=== PATIENT | female | born 1990 | race Two or more races ===

== ENCOUNTER 2017-12-19 04:36 | Inpatient (IN) | payer OTHER ==
[2017-12-19 05:32] LABS: APPEARANCE,URINE CLEAR; BILIRUBIN,URINE NEGATIVE (NEGATIVE); COLOR,URINE YELLOW; GLUCOSE, URINE NEGATIVE (NEGATIVE); KETONES,URINE NEGATIVE (NEGATIVE); LEUKOCYTE ESTERASE,URINE NEGATIVE (NEGATIVE); NITRITE,URINE NEGATIVE (NEGATIVE); PROTEIN,URINE NEGATIVE (NEGATIVE); URINE SPECIFIC GRAVITY 1.018
[2017-12-19] MEDS ORDERED: RINGERS SOLUTION,LACTATED 1,000 ML IV PRN (05:33)
[2017-12-19 05:46] LABS: URINE AMPHETAMINES SCREEN NEGATIVE; URINE BARBITURATES SCREEN NEGATIVE; URINE BENZODIAZEPINES SCREEN NEGATIVE; URINE COCAINE SCREEN NEGATIVE; URINE MARIJUANA (THC) SCREEN NEGATIVE; URINE METHADONE SCREEN NEGATIVE; URINE PHENCYCLIDINE SCREEN NEGATIVE
[2017-12-19] MEDS ORDERED: OXYTOCIN/NORMAL SALINE 20 UNIT/1,000 ML RTUINJ ONE (06:09)
[2017-12-19] MEDS ORDERED: MISOPROSTOL 0.2 MG TABLET ONE (06:09)
[2017-12-19] MEDS ORDERED: LIDOCAINE 1% INJ-PF (10 MG/ML) 30 ML SDV ONE (06:09)
--- NOTE | 2017-12-19 06:43 | Admission Physical ---
Datetime Report Generated by CPN: 12/19/2017 06:42 CURRENT ADMISSION Chief Complaint: Uterine Contractions Indication for Induction: Not Applicable Admit Impression : Term, Intrauterine Admit Plan: Initiate Labor Protocol ALLERGIES Medication Allergies: No Latex: No Latex Allergies OBSTETRICAL HISTORY EDC: 12/09/2017 00:00 : 3 Para: 1 Term: 1 : 0 SAB: 1 IAB: 0 Ectopic: 0 Livin Cesareans: 0 VBACs: 0 Multiple Births: 0 Gestational Diabetes: No Rh Sensitization: No Incompetent Cervix: No CHRISTY: No Infertility: No ART Treatment: No Uterine Anomaly: No IUGR: No Hx Previous C/S: No Macrosomia: No Hx Loss/Stillborn: No PIH: No Hx : No Placenta Previa/Abruption: No Depression/PP Depression: No PTL/PROM: No Post Hemorrhage: No Current Procedures: Ultrasound Obstetrical History Comments: G1- in 2014 G2- SAB @ 8weeks G3- current SEE RECORDS Alcohol: No Marijuana : No Cocaine: No Other Illicit Drugs: No Cigarettes: Never Smoker. 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 Surgery: No Heart Disease: No Hosp/Surgery: No Autoimmune Disorder: No Anesthetic Complications: No Kidney Disease: No Abnormal Pap Smear: No Neuro/Epilepsy: No Psychiatric Disorders: No Other Medical Diseases: No Hepatitis/Liver Disease: No Significant Family History: No Varicosities/Phlebitis: No Trauma/Violence : No Thyroid Dysfunction: No INFECTIOUS HISTORY Gonorrhea: No Genital Herpes: Yes Chlamydia: No Tuberculosis: No Syphilis: No Hepatitis: No HIV/AIDS Exposure: No Rash or Viral Illness: No HPV: No PHYSICAL EXAM General: Normal HEENT: Normal Neurologic: Normal Thyroid: Normal Heart: Normal Lungs: Normal Breast: Deferred Back: Normal Abdomen: Normal Genitourinary Exam: Normal Extremities: Normal DTRs: Normal Pelvic Type: Adequate FETUS A EGA: 41.3 Monitoring: External US Decelerations: None Admit Comment: presented in labor PLANS FOR LABOR AND DELIVERY Labor and Delivery: None Pain Management: Natural Feeding Preference: Breast Benefit of Breast Feed Discussed: Yes Circumcision: N/A INFORMED CONSENT Signature: with User ID: [email or web address]
[2017-12-19 06:51] LABS: ABSOLUTE EOSINOPHILS # (AUTO) 0.1 10^3/uL (0.0-0.6); ABSOLUTE LYMPHOCYTES (AUTO) 1.9 10^3/uL (0.5-4.7); ABSOLUTE MONOCYTES (AUTO) 0.6 10^3/uL (0.1-1.4); ABSOLUTE NEUT (AUTO) 6.2 10^3/uL (1.7-8.2); BASOPHILS % (AUTO) 0.4 % (0-2); HEMATOCRIT 34.5 % (36.0-47.0); HEMOGLOBIN 11.8 g/dL (12.0-15.5); LYMPHOCYTES % (AUTO) 21.6 % (13-45); MEAN CORPUSCULAR HEMOGLOBIN 28.9 pg (27.0-33.4); MEAN CORPUSCULAR HGB CONC 34.2 g/dL (32.0-36.0); MEAN CORPUSCULAR VOLUME 84 fl (80-97); MONOCYTES % (AUTO) 6.9 % (3-13); PLATELET COUNT 179 10^3/uL (150-450); RED BLOOD COUNT 4.08 10^6/uL (3.72-5.28); RED CELL DISTRIBUTION WIDTH 13.1 % (11.5-14.0); SEGMENTED NEUTROPHILS % (AUTO) 70.1 % (42-78); TOTAL CELLS COUNTED % (AUTO) 100 %; WHITE BLOOD COUNT 8.8 10^3/uL (4.0-10.5)
--- NOTE | 2017-12-19 08:39 | L&D Progress Notes ---
PROGRESS NOTES Datetime Report Generated by CPN: 12/19/2017 08:39 PROGRESS NOTE Impression: Reassuring Heart Rate Plan: Continue Present Management Informed Consent Obtained: Vaginal Delivery Vital Signs : Reviewed; Within Normal Limits Comment: Standing on side of bed, brething with uc's, does not want epidural or pain medication, irreg uc's, getting stromger, does not want to be checked, Cat 1 strip, pelvis proven 8-7 FETUS A FHR - Baseline: 150 Monitoring: External US Variability: Moderate 6-25bpm Accelerations: 15X15 Decelerations: None SIGNATURE SIGNATURE: [id number] SIGNATURE: [id number] Assignment: Valentina Beatty MD Signature: with User ID: Jackie : with User ID: [email or web address]
--- NOTE | 2017-12-19 12:20 | L&D Progress Notes ---
PROGRESS NOTES Datetime Report Generated by CPN: 12/19/2017 12:20 PROGRESS NOTE Impression: Reassuring Heart Rate Plan: Continue Present Management; Anticipate Vaginal Delivery Vital Signs : Reviewed; Within Normal Limits Comment: Cat 1 strip, breathing with UC's, uc's q 2-4, pt does not want a vaginal exam, Dr. Rogerio on unit and aware of status MEMBRANES Membranes: Ruptured FETUS C SIGNATURE: [id number];[id number] Assignment: Valentina Beatty MD Signature: with User ID: Jackie : with User ID: Jackie
[2017-12-19] MEDS ORDERED: OXYTOCIN/NORMAL SALINE 20 UNIT/1,000 ML RTUINJ IV PRN ×2 (12:28→15:11)
[2017-12-19] MEDS ORDERED: DIPH/PERTUSS(ACELL)/TETANUS VAC/PF 0.5 ML SYR (>=10YO) IM PRN (15:11)
[2017-12-19] MEDS ORDERED: PROMETHAZINE HCL 25 MG SUPP.RECT PR PRN (15:11)
[2017-12-19] MEDS ORDERED: DIBUCAINE 1% OINTMENT 28 GM TP PRN (15:11)
[2017-12-19] MEDS ORDERED: MAGNESIUM HYDROXIDE SUSP 30 ML UDCUP PO PRN (15:11)
[2017-12-19] MEDS ORDERED: DIPHENHYDRAMINE HCL 25 MG CAPSULE PO PRN (15:11)
[2017-12-19] MEDS ORDERED: PROMETHAZINE HCL 25 MG TABLET PO PRN (15:11)
[2017-12-19] MEDS ORDERED: ACETAMINOPHEN WITH CODEINE #3 TABLET PO PRN ×2 (15:11)
[2017-12-19] MEDS ORDERED: GLYCERIN/WITCH HAZEL LEAF 1 EACH MED..PAD TP PRN (15:11)
[2017-12-19] MEDS ORDERED: MISOPROSTOL 0.2 MG TABLET PR PRN (15:11)
[2017-12-19] MEDS ORDERED: BENZOCAINE/MENTHOL AEROSOL SPRAY 56 ML TOP PRN (15:11)
[2017-12-19] MEDS ORDERED: PSEUDOEPHEDRINE HCL 30 MG TABLET PO PRN (15:11)
[2017-12-19] MEDS ORDERED: MEASLES,MUMPS&RUBELLA VACC/PF 0.5 ML VIAL SUBCUT PRN (15:11)
[2017-12-19] MEDS ORDERED: ACETAMINOPHEN 650 MG SUPP.RECT PR PRN (15:11)
[2017-12-19] MEDS ORDERED: PROMETHAZINE HCL INJ 25 MG/1 ML VIAL IV PRN (15:11)
[2017-12-19] MEDS ORDERED: NA PHOS,M-B/NA PHOS,DI-BA (ADULT) 133 ML ENEMA PR PRN (15:11)
--- NOTE | 2017-12-19 17:03 | Warning Signs in Babies ---
VOD Warning Signs Datetime Report Generated by [facility]: 12/19/2017 17:03 VOD#608 -Warning Signs in Babies: Needs to be viewed. (12/19/2017 04:42:Barbara Valentin RN)
[2017-12-19] MEDS ORDERED: IBUPROFEN 800 MG TABLET ONE (17:12)
[2017-12-19] MEDS: IBUPROFEN 800 MG TABLET PO SCH (17:13)
--- NOTE | 2017-12-19 18:15 | Delivery Summary ---
Del Sum A-C Datetime Report Generated by CPN: 12/19/2017 18:14 DELIVERY PERSONNEL DELIVERY PERSONNEL: [id number] Delivery Doctor:: Radha Garland CNM Labor and Delivery Nurse:: Barbara Wagner RNscrap hooker Nurse:: Nataly Sheehan RN Nursery Nurse:: Gosia Whitman RN Additional Personnel: : Alis Barragan RN MATERNAL INFORMATION Delivery Anesthesia: None Medications After Delivery: Pitocin Bolus-Please Comment; Pitocin Drip 20 Units/1000ml NSS; Cytotec 600mcg Per Rectum/Vagina Maternal Complications: None Provider Comments: Pt in hands and knees, baby rotated and started pushing immediately, Delivered from OA to SUZIE, after delivery of head, pt stopped pushing, reminded to continue pushing with delivery of , nc x 1, easily reduced, baby placed on mothers abdomen, suctioned and stimulated, nursery in to evaluate baby Spont delivery of grossly nl intact placenta, 3 VC, ML lac repaired with 2-0 chromic without difficulty using Xylocaine, baby and mom remains in recovery in stable condition, cytotec 600 mcg via rectum, Pitocin and FFFM LABOR SUMMARY EDC: 12/09/2017 00:00 No. Babies in Womb: 1 Attempted: No Labor Anesthesia: None LABOR INFORMATION Reason for Induction: Not Applicable Onset of Labor: 12/19/2017 05:28 Complete Dilatation: 12/19/2017 14:46 Oxytocin: Augmentation Group B Beta Strep: negative Steroids Given: None Reason Steroids Not Administered: Not Applicable MEMBRANES Membranes Rupture Method: Artificial Rupture of Membranes: 12/19/2017 14:35 Length of Rupture (hr): 0.22 Amniotic Fluid Color: Clear Amniotic Fluid Amount: Small Amniotic Fluid Odor: Normal STAGES OF LABOR Stage 1 hr: 9 Stage 1 min: 18 Stage 2 hr: 0 Stage 2 min: 2 Stage 3 hr: 0 Stage 3 min: 4 Total Time in Labor hr: 9 Total Time in Labor min: 24 VAGINAL DELIVERY Episiotomy: None Laceration #1: Perineal Laceration Extension #1: First Degree Laceration Repair: Yes Laceration Repair Note: 2-0 chromic using 5cc 1% Xylocaine Sponge Count Correct: N/A Sharps Count Correct: N/A BABY A INFORMATION Infant Delivery Date/Time: 12/19/2017 14:48 Method of Delivery: Vaginal Born in Route : No : N/A Forceps: N/A Vacuum Extraction: N/A Shoulder Dystocia : No PRESENTATION/POSITION BABY A Presentation: Cephalic Cephalic Presentation: Vertex Vertex Position: Left Occipital Anterior Breech Presentation: N/A PLACENTA INFORMATION BABY A Placenta Delivery Time : 12/19/2017 14:52 Placenta Method of Delivery: Spontaneous Placenta Status: Delivered SCORES BABY A Heart Rate 1 min: >100 bpm Resp Effort 1 min: Slow, Irregular Reflex Irritability 1 min: Cough or Sneeze or Pulls Away Muscle Tone 1 min: Some Flexion of Extremities Color 1 min: Blue/Pale Resuscitation Effort 1 min: Tactile Stimulation SCORE 1 MIN: 6 Heart Rate 5 min: >100 bpm Resp Effort 5 min: Slow, Irregular Reflex Irritability 5 min: Cough or Sneeze or Pulls Away Muscle Tone 5 min: Active Motion Color 5 min: Body [place], Extremities Blue Resuscitation Effort 5 min: Tactile Stimulation SCORE 5 MIN: 8 INFANT INFORMATION BABY A Gestational Age at Delivery: 41.3 Gestational Status: Late Term- 41- 41.6 Weeks Infant Outcome : Liveborn Infant Condition : Stable Sex: Female IDENTIFICATION BABY A Infant Verification Date/Time: 12/19/2017 15:44 ID Band Number: [id number] Mother's Name Verified: Yes Infant RN Verifying : Natasha Wagner, RN/ BAmanda Sheehan, RN WEIGHT/LENGTH BABY A Infant Birthweight (gm): 3920 Weight (lb): 8 Infant Weight (oz): 10 Length (in): 20.75 Infant Length (cm): 52.71 CORD INFORMATION BABY A No. Cord Vessels: 3 Nuchal Cord : Around Neck x1, Loose Cord Blood Taken: Yes-For Storage (Mom's Blood type +) Suction: Mouth; Nose ASSESSMENT BABY A Infant Complications: None Physical Findings at Delivery: Within Normal Limits Respirations: Appears Normal Skin to Skin: Yes Skin to Skin Time (min): 120 Service Planner/ALS Called : No Infant Care By: Raven BARRAGAN RN Transferred To: Remains with Mother BABY B INFORMATION : N/A
[2017-12-19] MEDS: DOCUSATE SODIUM 100 MG CAPSULE PO SCH (19:26)
[2017-12-19] MEDS: FERROUS SULFATE 325 MG TABLET PO SCH (19:26)
[2017-12-19] MEDS: FAMOTIDINE 20 MG TABLET PO SCH (21:56)
[2017-12-20] MEDS: IBUPROFEN 800 MG TABLET PO SCH ×3 (06:12→21:27)
[2017-12-20 07:35] LABS: HEMATOCRIT 33.6 % (36.0-47.0); HEMOGLOBIN 11.4 g/dL (12.0-15.5); MEAN CORPUSCULAR VOLUME 85 fl (80-97); PLATELET COUNT 168 10^3/uL (150-450); RED BLOOD COUNT 3.94 10^6/uL (3.72-5.28); RED CELL DISTRIBUTION WIDTH 13.6 % (11.5-14.0); WHITE BLOOD COUNT 9.5 10^3/uL (4.0-10.5)
--- NOTE | 2017-12-20 08:52 | PDOC PROGRESS REPORT ---
Subjective-OB Progress Note for:: 12/20/17 Physical Exam (OB) Vital Signs: Temp Pulse Resp BP Pulse Ox 98.3 F 62 16 101/55 L 99 12/20/17 07:23 12/20/17 07:23 12/20/17 07:23 12/20/17 07:23 12/20/17 07:23 Intake & Output 12/19/17 12/20/17 12/21/17 06:59 06:59 06:59 Weight 74.1 kg - Lochia Lochia Amount: Small 10-25 ml Lochia Color: Rubra/Red - Abdomen Description: Tender, Soft, Round Hernia Present: No Bowel Sounds: Normoactive Flatus Presence: Present Stool: No Fundal Description: Firm, Midline Fundal Height: u/u - u/2 Objective-Diagnostic Laboratory: 12/20/17 07:06 12/20/17 07:06 WBC 9.5 RBC 3.94 Hgb 11.4 L Hct 33.6 L MCV 85 MCH 29.0 MCHC 34.0 RDW 13.6 Plt Count 168
[2017-12-20] MEDS: PRENATAL VITAMIN W DHA CAPSULE PO SCH (09:31)
[2017-12-20] MEDS: DOCUSATE SODIUM 100 MG CAPSULE PO SCH ×2 (09:31→18:39)
[2017-12-20] MEDS: FAMOTIDINE 20 MG TABLET PO SCH ×2 (09:31→21:27)
[2017-12-20] MEDS: FERROUS SULFATE 325 MG TABLET PO SCH ×2 (09:32→18:39)
[2017-12-20] MEDS: SENNOSIDES/DOCUSATE 8.6-50 MG 1 EACH TABLET PO SCH (09:32)
[2017-12-21] MEDS: IBUPROFEN 800 MG TABLET PO SCH (05:37)
[2017-12-21 09:15] VITALS: BP 101/64
--- NOTE | 2017-12-21 09:38 | PDOC DISCHARGE SUMMARY ---
Final Diagnosis Discharge Date: 12/21/17 - Final Diagnosis (1) Delivery normal Is this a current diagnosis for this admission?: Yes (2) Obstetrical laceration, first degree Is this a current diagnosis for this admission?: Yes Discharge Data - Discharge Medication Prescriptions: Ibuprofen [Motrin 800 mg Tablet] 800 mg PO Q8 #90 tablet Valacyclovir HCl [Valtrex 500 mg Tablet] 1,000 mg PO DAILY #30 tablet Home Medications: Ibuprofen [Motrin 800 mg Tablet] 800 mg PO Q8 #90 tablet 12/21/17 Vit/Dha [ Multi + Dha Capsule] 1 cap PO DAILY capsule Valacyclovir HCl [Valtrex 500 mg Tablet] 1,000 mg PO DAILY #30 tablet 12/21/17 Procedures: NST Intrapartum Procedure(s): Spontaneous Vaginal Delivery - Diagnosis Test Laboratory: Temp Pulse Resp BP Pulse Ox 98.3 F 58 L 15 101/64 99 12/21/17 08:09 12/21/17 08:09 12/21/17 08:09 12/21/17 08:09 12/21/17 08:09 12/19/17 12/19/17 12/20/17 04:57 06:05 07:06 RBC 4.08 3.94 Hgb 11.8 L 11.4 L Hct 34.5 L 33.6 L Urine Opiates Screen NEGATIVE - Discharge information/Instructions Discharge Activity: Balance Activity w/Rest, Pelvic Rest Discharge Diet: Regular Disposition: HOME, SELF-CARE Follow up with: [facility] in: 4, Weeks
[2017-12-21] MEDS: PRENATAL VITAMIN W DHA CAPSULE PO SCH (10:43)
[2017-12-21] MEDS: DOCUSATE SODIUM 100 MG CAPSULE PO SCH (10:43)
[2017-12-21] MEDS: FAMOTIDINE 20 MG TABLET PO SCH (10:44)
[2017-12-21] MEDS: FERROUS SULFATE 325 MG TABLET PO SCH (10:44)
[2017-12-21] MEDS: SENNOSIDES/DOCUSATE 8.6-50 MG 1 EACH TABLET PO SCH (10:45)
[2017-12-22 09:09] LABS: HSV-II IGG AB <0.91 index (0.00-0.90)
== END 2017-12-21 13:00 | disposition home or self-care (01) | DRG 775 ==
LOC: LC 04:36 → LR 05:45 → 2S 18:00
PROVIDERS: ADMIT Obstetrics & Gynecology Gynecology; ATTEND Obstetrics & Gynecology Gynecology
PROC: 10E0XZZ Delivery of Products of Conception, External Approach (ICD-10-PCS; principal; 2017-12-19)
PROC: 0HQ9XZZ Repair Perineum Skin, External Approach (ICD-10-PCS; 2017-12-19)
PROC: 10907ZC Drainage of Amniotic Fluid, Therapeutic from Products of Conception, Via Natural or Artificial Opening (ICD-10-PCS; 2017-12-19)
PROC: 4A1HXCZ Monitoring of Products of Conception, Cardiac Rate, External Approach (ICD-10-PCS; 2017-12-19)
DX: O48.0 Post-term pregnancy (principal); O69.81X0 Labor and delivery complicated by cord around neck, without compression, not applicable or unspecified; O70.0 First degree perineal laceration during delivery; Z3A.41 41 weeks gestation of pregnancy; Z37.0 Single live birth
CPT/HCPCS: 36415; 80307; 81005; 85025; 85027; 86592; 86695; 86696; 86850; 86900; 86901; J2590; J3490; Q0114